=== PATIENT | female | born 1965 | race Two or more races ===

== ENCOUNTER 2018-05-03 21:43 | Emergency (ER) | payer OTHER ==
[~2018-05-03] VITALS: Ht 152.4 cm; Wt 83.9 kg
[~2018-05-03 21:43] MED LIST: MEDROL PACK PO; ORPH100T PO; TRAMADOL HCL-AP1 TAB PO
[2018-05-03] MEDS ORDERED: SYNTHROID175 MCG PO (22:22)
[2018-05-04] MEDS ORDERED: MEDROLPACK PO (02:47)
[2018-05-04] MEDS ORDERED: CEPHALEXIN500 M1 PO (02:47)
[2018-05-04] MEDS ORDERED: ULTRACET PO (02:47)
== END 2018-05-04 03:01 | disposition home or self-care (01) ==
LOC: ER 21:43
DX: N39.0 Urinary tract infection, site not specified (principal); R10.2 Pelvic and perineal pain

== ENCOUNTER 2018-05-17 08:05 | Outpatient (CLI) | payer OTHER ==
[~2018-05-17 08:05] MED LIST changes: +CEPHALEXIN500 M1 PO; +MEDROLPACK PO; +SYNTHROID175 MCG PO; +ULTRACET PO
== END 2018-05-17 15:00 | disposition home or self-care (01) ==
LOC: LAB 08:05
DX: E03.8 Other specified hypothyroidism (principal)

== ENCOUNTER 2018-05-17 08:34 | Outpatient (CLI) | payer OTHER | END 2018-05-17 08:46 | disposition home or self-care (01) | LOC: SONOGRAMA 08:34 | DX: E04.8 Other specified nontoxic goiter (principal) ==

== ENCOUNTER 2023-02-10 14:13 | Outpatient (CLI) | payer OTHER | END 2023-02-10 14:30 | disposition home or self-care (01) | LOC: SONOGRAMA 14:13 | DX: E04.2 Nontoxic multinodular goiter (principal); Z88.2 Allergy status to sulfonamides; Z88.6 Allergy status to analgesic agent ==